=== PATIENT | female | born 1990 | race Caucasian/White ===

== ENCOUNTER 2017-03-03 08:53 | Emergency (ER) | payer BC ==
[2017-03-03] MEDS ORDERED: NORMAL SALINE 1000 ML 1,000 ML IV ONE ×2 (10:00→12:29)
--- NOTE | 2017-03-03 10:04 | ER Document Report ---
ED Flu Like - General Chief Complaint: Flu Symptoms Stated Complaint: SORE THROAT Time Seen by Provider: 03/03/17 09:38 Mode of Arrival: Ambulatory Information source: Patient TRAVEL OUTSIDE OF THE [place] IN LAST 30 DAYS: No - HPI Notes: 26-year-old previously healthy female at 22-1/2 weeks gestation presents with subjective fever, sore throat, generalized malaise and myalgias for the past 2-3 days. She has had cough minimally productive at most and considers it mild. Sore throat has been fairly significant. She has been hot and cold both with subjective fevers. Denies nausea vomiting as well as diarrhea. Denies any related symptoms, vaginal bleeding discharge abdominal pain or cramping. She was referred according to triage for a flu and strep test as well as IV fluids. Denies other exacerbating or alleviating symptoms. - Related Data Allergies/Adverse Reactions: No Known Allergies Allergy (Unverified 03/03/17 08:56) Past Medical History - Social History Smoking Status: Never Smoker Family History: Reviewed & Not Pertinent - Medical History Medical History: Negative Review of Systems - Review of Systems -: Yes All other systems reviewed and negative Physical Exam - Vital signs Vitals: Temp Pulse Resp BP Pulse Ox 98.4 F 115 H 17 102/87 H 99 03/03/17 08:56 03/03/17 08:56 03/03/17 08:56 03/03/17 08:56 03/03/17 08:56 Interpretation: Tachycardic - Notes Notes: GENERAL: VS as per nursing doc. Well-appearing, well-nourished and in no acute distress. HEAD: Atraumatic, normocephalic. EYES: Pupils equal round and reactive to light, extraocular movements intact, sclera anicteric, no conjunctival injection or discharge. ENT: Nares patent, oropharynx clear without exudates, moist mucous membranes. NECK: Normal range of motion, supple without lymphadenopathy. LUNGS: Breath sounds clear to auscultation bilaterally and equal. No wheezes rales or rhonchi. HEART: Regular rhythm without murmurs. Heart rate 106 ABDOMEN: Soft, gravid consistent with dates, non-tender, normoactive bowel sounds. No guarding, no rebound. No masses appreciated. No Matlock sign. BACK: No CVA tenderness. EXTREMITIES: Normal range of motion, no calf tenderness, no edema. NEUROLOGICAL: Cranial nerves grossly intact. Normal speech. No meningeal signs. PSYCH: Normal mood, normal affect. SKIN: Warm, dry, normal turgor, no lesions noted. Course - Re-evaluation Re-evalutation: 03/03/17 11:59 Patient rechecked and there are no changes though patient has not yet received the IV fluids. Discussed differential diagnosis with her and what appears to be a viral syndrome, as well as warning signs to watch for. She will use Tylenol for discomfort and stay hydrated. She voices understanding. - Vital Signs Vital signs: Temp Pulse Resp BP Pulse Ox 98.5 F 91 16 122/73 100 03/03/17 12:08 03/03/17 12:08 03/03/17 12:08 03/03/17 12:08 03/03/17 12:08 Discharge - Discharge Clinical Impression: Viral syndrome Condition: Good Disposition: HOME, SELF-CARE Instructions: Acetaminophen, Viral Syndrome ([facility]) Additional Instructions: Use Tylenol for discomfort. Push non-caffeinated fluids and stay hydrated. Return for worsening or concern. A throat culture to verify the initial swab will take a couple of days to get the results back.
[2017-03-03 10:21] LABS: A TYPE INFLUENZA AG NEGATIVE (NEGATIVE); B INFLUENZA AG NEGATIVE (NEGATIVE)
[2017-03-03] MEDS ORDERED: ACETAMINOPHEN 325 MG TABLET PO ONE (11:57)
[2017-03-03 12:27] VITALS: BP 122/73
== END 2017-03-03 13:06 | disposition home or self-care (01) ==
LOC: ER 08:53
DX: O98.512 Other viral diseases complicating pregnancy, second trimester (principal); O99.512 Diseases of the respiratory system complicating pregnancy, second trimester; J02.9 Acute pharyngitis, unspecified; O26.892 Other specified pregnancy related conditions, second trimester; R05 Cough; R00.0 Tachycardia, unspecified; O99.89 Other specified diseases and conditions complicating pregnancy, childbirth and the puerperium; M79.1 Myalgia; O26.812 Pregnancy related exhaustion and fatigue, second trimester; Z3A.22 22 weeks gestation of pregnancy
CPT/HCPCS: 87070; 87804; 87880; 99283

== ENCOUNTER 2017-06-25 18:57 | Inpatient (IN) | payer BC ==
[2017-06-25] MEDS ORDERED: RINGERS SOLUTION,LACTATED 1,000 ML IV PRN (19:27)
[2017-06-25] MEDS ORDERED: RINGERS SOLUTION,LACTATED 300 ML IV ONE (19:27)
[2017-06-25] MEDS ORDERED: DINOPROSTONE 10 MG VAGINAL INSERT.SR PV PRN (19:27)
[2017-06-25] MEDS ORDERED: MISOPROSTOL 0.2 MG TABLET ONE (20:04)
[2017-06-25] MEDS ORDERED: OXYTOCIN/NORMAL SALINE 20 UNIT/1,000 ML RTUINJ ONE (20:05)
[2017-06-25] MEDS ORDERED: LIDOCAINE 1% INJ-PF (10 MG/ML) 30 ML SDV ONE (20:05)
[2017-06-25] MEDS ORDERED: DINOPROSTONE 10 MG VAGINAL INSERT.SR ONE (20:05)
[2017-06-25 20:19] LABS: ABSOLUTE LYMPHOCYTES (AUTO) 1.4 10^3/uL (0.5-4.7); ABSOLUTE MONOCYTES (AUTO) 0.8 10^3/uL (0.1-1.4); ABSOLUTE NEUT (AUTO) 8.9 10^3/uL (1.7-8.2); BASOPHILS % (AUTO) 0.3 % (0-2); EOSINOPHILS % (AUTO) 0.2 % (0-6); HEMOGLOBIN 13.7 g/dL (12.0-15.5); LYMPHOCYTES % (AUTO) 12.8 % (13-45); MEAN CORPUSCULAR HEMOGLOBIN 31.1 pg (27.0-33.4); MEAN CORPUSCULAR HGB CONC 33.5 g/dL (32.0-36.0); MEAN CORPUSCULAR VOLUME 93 fl (80-97); MONOCYTES % (AUTO) 7.1 % (3-13); PLATELET COUNT 102 10^3/uL (150-450); RED BLOOD COUNT 4.42 10^6/uL (3.72-5.28); RED CELL DISTRIBUTION WIDTH 14.3 % (11.5-14.0); SEGMENTED NEUTROPHILS % (AUTO) 79.6 % (42-78); TOTAL CELLS COUNTED % (AUTO) 100 %; WHITE BLOOD COUNT 11.3 10^3/uL (4.0-10.5)
[2017-06-25 20:31] LABS: APPEARANCE,URINE CLEAR; BILIRUBIN,URINE NEGATIVE (NEGATIVE); COLOR,URINE YELLOW; GLUCOSE, URINE NEGATIVE (NEGATIVE); KETONES,URINE NEGATIVE (NEGATIVE); LEUKOCYTE ESTERASE,URINE NEGATIVE (NEGATIVE); NITRITE,URINE NEGATIVE (NEGATIVE); PROTEIN,URINE NEGATIVE (NEGATIVE); URINE SPECIFIC GRAVITY 1.008
[2017-06-25 20:39] LABS: URINE AMPHETAMINES SCREEN NEGATIVE; URINE BARBITURATES SCREEN NEGATIVE; URINE BENZODIAZEPINES SCREEN NEGATIVE; URINE COCAINE SCREEN NEGATIVE; URINE MARIJUANA (THC) SCREEN NEGATIVE; URINE METHADONE SCREEN NEGATIVE; URINE PHENCYCLIDINE SCREEN NEGATIVE
[2017-06-25 20:43] LABS: ALANINE AMINOTRANSFERASE 21 U/L (9-52); ALBUMIN 3.4 g/dL (3.5-5.0); ALKALINE PHOSPHATASE 140 U/L (38-126); ANION GAP 14 (5-19); ASPARTATE AMINO TRANSFERASE 20 U/L (14-36); BILIRUBIN,DIRECT 0.2 mg/dL (0.0-0.4); BILIRUBIN,TOTAL 0.3 mg/dL (0.2-1.3); BLOOD UREA NITROGEN 7 mg/dL (7-20); CALCIUM 9.3 mg/dL (8.4-10.2); CARBON DIOXIDE 21 mmol/L (22-30); CHLORIDE 107 mmol/L (98-107); GLUCOSE 87 mg/dL (75-110); LDH 398 U/L (313-618); POTASSIUM 4.3 mmol/L (3.6-5.0); URIC ACID 5.3 mg/dL (2.5-6.2)
[2017-06-25 20:44] LABS: UR PRO/CREAT RATIO RESULT 0.1 mg/mg (0.0-0.2); URINE CREATININE 74.4 mg/dL (16-327); URINE PROTEIN 10.3 mg/dL (<12)
--- NOTE | 2017-06-26 08:23 | Admission Physical ---
Datetime Report Generated by CPN: 06/26/2017 08:23 CURRENT ADMISSION Hx Assessment: The History has been Reviewed and is Current Chief Complaint: Scheduled Induction of Labor Indication for Induction: Gestational HTN Indication for Induction- Other: thrombocytopenia Admit Impression : Term, Intrauterine ; No Active Labor; Intact Membranes Admit Plan: Admit to Unit; Initiate Labor Induction Protocol ALLERGIES Medication Allergies: No Medication Allergies: No Known Allergies (06/25/2017) Latex: No Latex Allergies Food Allergies: none Environmental Allergies: none OBSTETRICAL HISTORY EDC: 07/01/2017 00:00 : 1 Para: 0 Term: 0 : 0 SAB: 0 IAB: 0 Ectopic: 0 Livin Cesareans: 0 VBACs: 0 Multiple Births: 0 Gestational Diabetes: No Rh Sensitization: No Incompetent Cervix: No HERNAN: No Infertility: No ART Treatment: No Uterine Anomaly: No IUGR: No Hx Previous C/S: No Macrosomia: No Hx Loss/Stillborn: No PIH: No Hx : No Placenta Previa/Abruption: No Depression/PP Depression: No PTL/PROM: No Post Hemorrhage: No Current Procedures: Ultrasound Obstetrical History Comments: G1: Current CHTN vs GHTN SEE RECORDS Alcohol: No Marijuana : No Cocaine: No Other Illicit Drugs: No Cigarettes: Never Smoker. 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 Surgery: No Heart Disease: No Hosp/Surgery: No Autoimmune Disorder: No Anesthetic Complications: No Kidney Disease: No Abnormal Pap Smear: No Neuro/Epilepsy: No Psychiatric Disorders: No Other Medical Diseases: No Hepatitis/Liver Disease: No Significant Family History: No Varicosities/Phlebitis: No Trauma/Violence : No Thyroid Dysfunction: No Medical History Comments: thrombocytopenia, GHTN, palpitations INFECTIOUS HISTORY Gonorrhea: No Genital Herpes: No Chlamydia: No Tuberculosis: No Syphilis: No Hepatitis: No HIV/AIDS Exposure: No Rash or Viral Illness: No HPV: No PHYSICAL EXAM General: Normal HEENT: Normal Neurologic: Deferred Thyroid: Normal Heart: Normal Lungs: Normal Breast: Normal Back: Normal Abdomen: Normal Genitourinary Exam: Normal Extremities: Normal DTRs: Normal Pelvic Type: Adequate Vital Signs: Reviewed VAGINAL EXAM Dilatation: 1 Contraction Comments: irregular MEMBRANES Membranes: Intact FETUS A EGA: 39.2 Monitoring: External US FHR- Baseline: 120 Variability: Moderate 6-25bpm Accelerations: 15X15 Decelerations: None Estimated Weight (gm): 3400 Presentation: Vertex Admit Comment: scheduled iol ghtn, thrombocytopenia Admit to L _ D see hx GBS neg cervidil over night PLANS FOR LABOR AND DELIVERY Labor and Delivery: None Pain Management: Epidural Feeding Preference: Formula Benefit of Breast Feed Discussed: Yes Circumcision: Yes INFORMED CONSENT Assignment: Poornima Scott MD Signature: with User ID: [email or web address] : with User ID: [email or web address]
[2017-06-26] MEDS ORDERED: NALBUPHINE HCL INJ 10 MG/1 ML AMPULE INJ ONE (10:33)
[2017-06-26] MEDS ORDERED: ONDANSETRON HCL INJ/PF 4 MG/2 ML SDV IV ONE (10:49)
[2017-06-26] MEDS ORDERED: NALBUPHINE HCL INJ 10 MG/1 ML AMPULE ONE (10:53)
[2017-06-26] MEDS ORDERED: ONDANSETRON HCL INJ/PF 4 MG/2 ML SDV ONE (10:54)
[2017-06-26 11:55] LABS: ABSOLUTE LYMPHOCYTES (AUTO) 1.2 10^3/uL (0.5-4.7); ABSOLUTE MONOCYTES (AUTO) 0.7 10^3/uL (0.1-1.4); ABSOLUTE NEUT (AUTO) 9.4 10^3/uL (1.7-8.2); BASOPHILS % (AUTO) 0.2 % (0-2); HEMATOCRIT 39.9 % (36.0-47.0); HEMOGLOBIN 13.5 g/dL (12.0-15.5); LYMPHOCYTES % (AUTO) 10.3 % (13-45); MEAN CORPUSCULAR HEMOGLOBIN 31.2 pg (27.0-33.4); MEAN CORPUSCULAR HGB CONC 33.8 g/dL (32.0-36.0); MEAN CORPUSCULAR VOLUME 92 fl (80-97); MONOCYTES % (AUTO) 6.2 % (3-13); RED BLOOD COUNT 4.32 10^6/uL (3.72-5.28); RED CELL DISTRIBUTION WIDTH 14.1 % (11.5-14.0); SEGMENTED NEUTROPHILS % (AUTO) 83.3 % (42-78); TOTAL CELLS COUNTED % (AUTO) 100 %; WHITE BLOOD COUNT 11.3 10^3/uL (4.0-10.5)
[2017-06-26 12:34] LABS: PLATELET COUNT 96 10^3/uL (150-450)
[2017-06-26] MEDS ORDERED: EPHEDRINE SULFATE INJ 50 MG/1 ML AMPULE ONE (13:00)
[2017-06-26] MEDS ORDERED: BUPIVACAINE HCL 0.25 % INJ/PF (2.5 MG/1 ML) 30 ML VIAL ONE (13:00)
[2017-06-26] MEDS ORDERED: FENTANYL/BUPIVACAINE/NS/PF 300 MCG/150 ML RTUINJ EPI ONE (13:00)
[2017-06-26] MEDS ORDERED: OXYTOCIN/NORMAL SALINE 20 UNIT/1,000 ML RTUINJ IV PRN (14:29)
[2017-06-26] MEDS ORDERED: OXYTOCIN/NORMAL SALINE 20 UNIT/1,000 ML RTUINJ ONE (14:32)
--- NOTE | 2017-06-26 18:42 | L&D Progress Notes ---
PROGRESS NOTES Datetime Report Generated by CPN: 06/26/2017 18:41 PROGRESS NOTE Impression: Normal Progression of Labor Procedures: Artificial ROM Plan: Continue Present Management; Induction; Cervical Ripening Informed Consent Obtained: Vaginal Delivery; Induction of Labor; Risks, Benefits and Alternatives Discussed Vital Signs : Reviewed Vital Signs Comments: some mild range BPs Comment: Cooks catheter removed at approx 1500 after epidural. Patient now comfortable. No pitocin started yet since patient was paul. Pitocin initated at 1500, Now AROM attempted - bag is tight on head. POssible AROM with clear fluid. Will continue with IOL and anticipate . Not laboring cervix yet. VAGINAL EXAM Dilatation: 1 Contractions: irregular MEMBRANES Membranes: Ruptured Membranes: Intact FETUS A FHR - Baseline: 120 Monitoring: External US Variability: Moderate 6-25bpm Accelerations: 15X15 Decelerations: None FHR Category: Category I Estimated Weight (gm): 3400 Presentation: Vertex SIGNATURE SIGNATURE: [id number];[id number] SIGNATURE: [id number] Signature: with User ID: [email or web address]
[2017-06-27] MEDS ORDERED: FENTANYL/BUPIVACAINE/NS/PF 300 MCG/150 ML RTUINJ EPI ONE (00:04)
[2017-06-27] MEDS ORDERED: LIDOCAINE 2% INJ-PF (20 MG/ML) 10 ML AMPUL ONE ×2 (00:16→04:36)
[2017-06-27] MEDS ORDERED: DIPHENHYDRAMINE HCL 50 MG/ML VIAL ONE (03:43)
[2017-06-27] MEDS ORDERED: CITRIC ACID/SODIUM CITRATE ORAL SOLN 15 ML UDCUP ONE (04:33)
[2017-06-27] MEDS ORDERED: MISOPROSTOL 0.2 MG TABLET ONE (04:33)
[2017-06-27] MEDS ORDERED: CEFAZOLIN 2 GM/D5W RTU 2 GM/50 ML RTUPB IV ONE ×2 (04:33→07:00)
--- NOTE | 2017-06-27 06:40 | L&D Progress Notes ---
PROGRESS NOTES Datetime Report Generated by CPN: 06/27/2017 06:40 PROGRESS NOTE Impression: Arrest of Dilatation/Descent Procedures: Sterile Vag Exam Plan: Deliver- Section Informed Consent Obtained: Vaginal Delivery; Section Delivery; Risks, Benefits and Alternatives Discussed Vital Signs : Reviewed Comment: Cvx unchanged at 4-5/60/hi despite 20 units of pitocin. station is still very high (really -3 not -2). No cervical change despite IUPC placement. Ctx q 1-2 minutes and some lasting a long time with resting uterine tone high at 60. Reviewed with patient unable to obtain adequate MVUs despite 20 units of pitocin. station and cervical exam unchanged since yesterday at 1730. Offered to continued pitocin at 20 units for an additional 2 hours and continue with attempt of vaginal delivery vs section for Arrest of Dilation. R/B/A reviewed and she desires to proceed with Primary section. FETUS A FHR - Baseline: 145 Monitoring: External US Variability: Moderate 6-25bpm Accelerations: 15X15 Decelerations: None FHR Category: Category I FETUS C SIGNATURE: [id number] Signature: with User ID: [email or web address]
[2017-06-27] MEDS ORDERED: LOPERAMIDE HCL 2 MG CAPSULE ONE (06:41)
[2017-06-27] MEDS ORDERED: CARBOPROST TROMETHAMINE INJ 250 MCG/1 ML AMPULE ONE (06:41)
[2017-06-27] MEDS ORDERED: EPHEDRINE SULFATE INJ 50 MG/1 ML AMPULE ONE (06:46)
[2017-06-27] MEDS ORDERED: MIDAZOLAM 2 MG/2 ML INJ ONE (06:46)
[2017-06-27] MEDS ORDERED: OXYTOCIN 10 UNIT/ML VIAL ONE (06:46)
[2017-06-27] MEDS ORDERED: ONDANSETRON HCL INJ/PF 4 MG/2 ML SDV ONE (06:47)
[2017-06-27] MEDS ORDERED: FENTANYL CITRATE INJ/PF 100 MCG/2 ML AMPUL ONE (06:47)
[2017-06-27] MEDS ORDERED: ACETAMINOPHEN 100 ML IV ONE (06:47)
[2017-06-27] MEDS ORDERED: MORPHINE SULFATE 10 MG/ML INJ ONE (07:25)
[2017-06-27] MEDS ORDERED: MORPHINE SULFATE 10 MG/ML INJ IV PRN (07:32)
[2017-06-27] MEDS ORDERED: MEPERIDINE HCL/PF INJ 25 MG/1 ML DISP.SYRIN IV PRN (07:32)
[2017-06-27] MEDS ORDERED: DIPHENHYDRAMINE HCL 50 MG/ML VIAL IV PRN (07:32)
[2017-06-27] MEDS ORDERED: OXYCODONE-ACETAMINOPHEN 5-325 MG TABLET PO PRN ×3 (07:32→08:15)
[2017-06-27] MEDS ORDERED: FENTANYL CITRATE INJ/PF 100 MCG/2 ML AMPUL IV PRN ×3 (07:32)
[2017-06-27] MEDS ORDERED: PROMETHAZINE HCL INJ 25 MG/1 ML VIAL IV PRN ×3 (07:32→08:15)
[2017-06-27] MEDS ORDERED: METOPROLOL TARTRATE PF/INJ 5 MG/5 ML SDV IV ONE (07:55)
[2017-06-27] MEDS ORDERED: HYDROMORPHONE HCL INJ/PF 2 MG/ML AMPULE ONE ×2 (07:55→09:22)
[2017-06-27] MEDS ORDERED: SIMETHICONE 80 MG TAB.CHEW PO PRN (08:15)
[2017-06-27] MEDS ORDERED: DIPH/PERTUSS(ACELL)/TETANUS VAC/PF 0.5 ML SYR (>=10YO) IM PRN (08:15)
[2017-06-27] MEDS ORDERED: OXYTOCIN/NORMAL SALINE 20 UNIT/1,000 ML RTUINJ IV PRN (08:15)
[2017-06-27] MEDS ORDERED: HYDROMORPHONE HCL INJ/PF 2 MG/ML AMPULE IV PRN (08:15)
[2017-06-27] MEDS ORDERED: ACETAMINOPHEN 325 MG TABLET PO PRN (08:15)
[2017-06-27] MEDS ORDERED: ACETAMINOPHEN 100 ML IV PRN (08:15)
[2017-06-27] MEDS ORDERED: MEASLES,MUMPS&RUBELLA VACC/PF 0.5 ML VIAL SUBCUT PRN (08:15)
[2017-06-27] MEDS ORDERED: OXYTOCIN/NORMAL SALINE 0 UNIT/0 ML RTUINJ ONE (08:16)
[2017-06-27] MEDS ORDERED: MISOPROSTOL 0.2 MG TABLET PR ONE (08:25)
[2017-06-27] MEDS ORDERED: DEXAMETHASONE SOD PHOSPHATE INJ 4 MG/1 ML VIAL ONE (08:26)
--- NOTE | 2017-06-27 08:55 | Brief Operative Note ---
BRIEF OPERATIVE REPORT DATE OF SURGERY: 06/27/17 TIME OF SURGERY: 07:00 PREOPERATIVE DIAGNOSIS: Arrest Of Dilation at 5cm, GHTN, Thrombocytopenia POSTOPERATIVE DIAGNOSIS: ANDREA - delivered SURGEON: SHEA BAZAN FINDINGS: VMI, delivered at 0714, cephalic presentation. Apgars 4/8. Weight 7# 7oz. Contraction band in uterus prior to head which was likely preventing cervical dilation and descent. QBL 1431ml, UOP 100ml clear, IVF 900. S/w Dr. Guzman and will give Dexamethasone 10mg IV now and then repeat platlets in [address] Hill to be notified prior to epidural catheter removal. Dr. Hill aware. COMPLICATIONS: uterine atony ESTIMATED BLOOD LOSS: QBL 1431ml TISSUE REMOVED OR ALTERED: placenta and cord not sent to pathology TECHNICAL PROCEDURE: Primary Section
[2017-06-27] MEDS ORDERED: DEXAMETHASONE SOD PHOS INJ 10 MG/1 ML VIAL IM ONE ×2 (09:30→22:00)
--- NOTE | 2017-06-27 10:39 | Delivery Summary ---
Del Sum A-C Datetime Report Generated by CPN: 06/27/2017 10:38 DELIVERY PERSONNEL DELIVERY PERSONNEL: [id number] Delivery Doctor:: Poornima Scott MD Anesthesiologist:: Jez Joel MD HELP DESK AGENT:: Lucrecia Doherty CRNA Labor and Delivery Nurse:: Gretchen Vzaquez RNcopier technician Nurse:: Abby Slater RN Sales Associate Key Holder:: Gretchen Vazquez RN Neonatal Nurse Practitioner:: NITA Anderson Private Equity Analyst/ACADEMIC INTERVENTIONIST: Eduarda Philip, HIRE CAR DRIVER Private Equity Analyst/ACADEMIC INTERVENTIONIST: Carissa Burleson HIRE CAR DRIVER MATERNAL INFORMATION Delivery Anesthesia: Epidural Medications After Delivery: Pitocin 10 Units IM; Pitocin Bolus-Please Comment; Pitocin Drip 20 Units/1000ml NSS; Other-Please Comment Meds After Delivery Comment: Cytotec 1000 mcg [place] Maternal Complications: None LABOR SUMMARY EDC: 07/01/2017 00:00 No. Babies in Womb: 1 Attempted: No Labor Anesthesia: Epidural LABOR INFORMATION Reason for Induction: Gestational Hypertension Onset of Labor: 06/26/2017 17:28 Cervical Ripening Agents: Cervidil Oxytocin: Induction Group B Beta Strep: negative Antibiotics # of Doses: n/a Antibiotics Time of Last Dose: n/a Name of Antibiotic Given: n/a Steroids Given: None Reason Steroids Not Administered: Not Applicable MEMBRANES Membranes Rupture Method: Spontaneous Rupture of Membranes: 06/26/2017 17:30 Length of Rupture (hr): 13.73 Amniotic Fluid Color: Bloody Amniotic Fluid Amount: Scant Amniotic Fluid Odor: Normal STAGES OF LABOR Stage 3 hr: 0 Stage 3 min: 1 Total Time in Labor hr: 13 Total Time in Labor min: 47 VAGINAL DELIVERY Episiotomy: None Laceration #1: None Laceration Extension #1: N/A Laceration Repair: Not Applicable Sponge Count Correct: N/A Sharps Count Correct: N/A CSECTION DELIVERY Primary Indication: Failed Induction Secondary Indication: N/A CSection Urgency: Non-Scheduled CSection Incidence: Primary Labor: Labor Elective: Nonelective CSection Incision: Lower Uterine Transverse BABY A INFORMATION Infant Delivery Date/Time: 06/27/2017 07:14 Method of Delivery: Born in Route : No : N/A Forceps: N/A Vacuum Extraction: N/A Shoulder Dystocia : No PRESENTATION/POSITION BABY A Presentation: Cephalic Cephalic Presentation: Vertex Breech Presentation: N/A PLACENTA INFORMATION BABY A Placenta Delivery Time : 06/27/2017 07:15 Placenta Method of Delivery: Manual Removal Placenta Status: Delivered SCORES BABY A Heart Rate 1 min: >100 bpm Resp Effort 1 min: Absent Reflex Irritability 1 min: Grimace Muscle Tone 1 min: Some Flexion of Extremities Color 1 min: Blue/Pale Resuscitation Effort 1 min: Tactile Stimulation; PPV/NCPAP SCORE 1 MIN: 4 Heart Rate 5 min: >100 bpm Resp Effort 5 min: Good Cry Reflex Irritability 5 min: Cough or Sneeze or Pulls Away Muscle Tone 5 min: Some Flexion of Extremities Color 5 min: Body [place], Extremities Blue SCORE 5 MIN: 8 INFORMATION BABY A Gestational Age at Delivery: 39.3 Gestational Status: Full Term- 39- 40.6 Weeks Outcome : Liveborn Infant Condition : Stable Sex: Male IDENTIFICATION BABY A Infant Verification Date/Time: 06/27/2017 07:29 ID Band Number: [id number] Mother's Name Verified: Yes RN Verifying : Kathryn Camp RNC Additional Verifying Personnel: R David RN WEIGHT/LENGTH BABY A Infant Birthweight (gm): 3360 Weight (lb): 7 Infant Weight (oz): 7 Infant Length (in): 20.00 Infant Length (cm): 50.80 CORD INFORMATION BABY A No. Cord Vessels: 3 Nuchal Cord : Around Neck x1, Loose Cord Blood Taken: Yes-For Eval (Mom's Blood Type - or O+) Infant Suction: Mouth ASSESSMENT BABY A Skin to Skin: No BABY B INFORMATION : N/A
[2017-06-27 12:00] LABS: HEMATOCRIT 33.4 % (36.0-47.0); MEAN CORPUSCULAR HEMOGLOBIN 31.3 pg (27.0-33.4); MEAN CORPUSCULAR HGB CONC 33.5 g/dL (32.0-36.0); MEAN CORPUSCULAR VOLUME 93 fl (80-97); RED BLOOD COUNT 3.58 10^6/uL (3.72-5.28); RED CELL DISTRIBUTION WIDTH 13.9 % (11.5-14.0)
[2017-06-27] MEDS ORDERED: CEFAZOLIN 2 GM/D5W RTU 2 GM/50 ML RTUPB IV SCH (12:00)
[2017-06-27 12:08] LABS: HEMOGLOBIN 11.2 g/dL (12.0-15.5); PLATELET COUNT 82 10^3/uL (150-450)
[2017-06-27 12:21] LABS: ABSOLUTE LYMPHOCYTES# (MANUAL) 0.7 10^3/uL (0.5-4.7); ABSOLUTE MONOCYTES # (MANUAL) 0.3 10^3/uL (0.1-1.4); BASOPHILS % (MANUAL) 0 % (0-2); EOSINOPHILS % (MANUAL) 0 % (0-6); LYMPHOCYTES % (MANUAL) 4 % (13-45); MONOCYTES % (MANUAL) 2 % (3-13); SEGMENTED NEUTROPHILS % (MAN) 94 % (42-78); TOTAL CELLS COUNTED 100
[2017-06-27 12:24] LABS: PLATELET COMMENT DECREASED; RBC MORPHOLOGY COMMENT NORMO-CYTIC/CHROMIC
[2017-06-27] MEDS: OXYCODONE-ACETAMINOPHEN 5-325 MG TABLET PO PRN ×3 (13:37→22:12)
[2017-06-27] MEDS: DOCUSATE SODIUM 100 MG CAPSULE PO SCH ×2 (13:38→17:41)
[2017-06-27] MEDS: PRENATAL VITAMIN W DHA CAPSULE PO SCH (13:38)
[2017-06-27] MEDS ORDERED: DEXAMETHASONE SOD PHOS INJ 10 MG/1 ML VIAL IV ONE (18:50)
[2017-06-27 20:13] LABS: ABSOLUTE BASOPHILS # (AUTO) 0.1 10^3/uL (0.0-0.2); ABSOLUTE LYMPHOCYTES (AUTO) 1.1 10^3/uL (0.5-4.7); ABSOLUTE MONOCYTES (AUTO) 0.8 10^3/uL (0.1-1.4); ABSOLUTE NEUT (AUTO) 17.8 10^3/uL (1.7-8.2); BASOPHILS % (AUTO) 0.6 % (0-2); HEMATOCRIT 30.3 % (36.0-47.0); HEMOGLOBIN 10.3 g/dL (12.0-15.5); LYMPHOCYTES % (AUTO) 5.5 % (13-45); MEAN CORPUSCULAR HEMOGLOBIN 31.6 pg (27.0-33.4); MEAN CORPUSCULAR HGB CONC 34.1 g/dL (32.0-36.0); MEAN CORPUSCULAR VOLUME 93 fl (80-97); RED BLOOD COUNT 3.26 10^6/uL (3.72-5.28); RED CELL DISTRIBUTION WIDTH 14.1 % (11.5-14.0); SEGMENTED NEUTROPHILS % (AUTO) 89.9 % (42-78); TOTAL CELLS COUNTED % (AUTO) 100 %; WHITE BLOOD COUNT 19.8 10^3/uL (4.0-10.5)
[2017-06-27 20:28] LABS: PLATELET COUNT 77 10^3/uL (150-450)
[2017-06-28] MEDS: OXYCODONE-ACETAMINOPHEN 5-325 MG TABLET PO PRN ×5 (02:28→22:39)
[2017-06-28 07:30] LABS: HEMATOCRIT 34.3 % (36.0-47.0); HEMOGLOBIN 11.6 g/dL (12.0-15.5); MEAN CORPUSCULAR HEMOGLOBIN 31.5 pg (27.0-33.4); MEAN CORPUSCULAR HGB CONC 33.8 g/dL (32.0-36.0); MEAN CORPUSCULAR VOLUME 93 fl (80-97); PLATELET COUNT 107 10^3/uL (150-450); RED BLOOD COUNT 3.68 10^6/uL (3.72-5.28); RED CELL DISTRIBUTION WIDTH 14.3 % (11.5-14.0); WHITE BLOOD COUNT 22.9 10^3/uL (4.0-10.5)
--- NOTE | 2017-06-28 09:14 | PDOC PROGRESS REPORT ---
Subjective-OB Progress Note for:: 06/28/17 Subjective: s/p primary c section pt sitting up reports dull pain abdomen soft and mildly tender/ dry and intact -flatus -bm epidural catheter in place/ steroids given last night/platelets up to 107,000/ hemooncologist to see pt today bottlefeeding anticipate d/c in Am Physical Exam (OB) Vital Signs: Temp Pulse Resp BP Pulse Ox 98.8 F 93 18 152/88 H 98 06/28/17 07:16 06/28/17 07:16 06/28/17 07:16 06/28/17 07:16 06/28/17 07:16 Intake & Output 06/27/17 06/28/17 06/29/17 06:59 06:59 06:59 Output Total 4400 Balance -4400 - PIH/Pre-Eclampsia Clonus: Negative Headache: Absent Epigastric Pain: No Visual Changes: No - Incision: Well Approximated Closure Type: Sutures - Lochia Lochia Amount: Scant < 10 ml Lochia Color: Rubra/Red - Abdomen Description: Soft, Flat Hernia Present: No Fundal Description: Firm, Midline Fundal Height: u/u - u/2 Objective-Diagnostic Laboratory: 06/28/17 06:36 06/25/17 19:53 06/27/17 06/27/17 06/28/17 11:34 20:00 06:36 WBC 17.0 H 19.8 H 22.9 H RBC 3.58 L 3.26 L 3.68 L Hgb 11.2 L D 10.3 L 11.6 L Hct 33.4 L 30.3 L 34.3 L MCV 93 93 93 MCH 31.3 31.6 31.5 MCHC 33.5 34.1 33.8 RDW 13.9 14.1 H 14.3 H Plt Count 82 L 77 L 107 L Seg Neutrophils % Not Reportable 89.9 H Lymphocytes % Not Reportable 5.5 L Monocytes % Not Reportable 4.0 Eosinophils % Not Reportable 0.0 Basophils % Not Reportable 0.6 Absolute Neutrophils Not Reportable 17.8 H Absolute Lymphocytes Not Reportable 1.1 Absolute Monocytes Not Reportable 0.8 Absolute Eosinophils Not Reportable 0.0 Absolute Basophils Not Reportable 0.1 Blood Type 06/28/17 06:36 WBC RBC Hgb Hct MCV MCH MCHC RDW Plt Count Seg Neutrophils % Lymphocytes % Monocytes % Eosinophils % Basophils % Absolute Neutrophils Absolute Lymphocytes Absolute Monocytes Absolute Eosinophils Absolute Basophils Blood Type O NEGATIVE
[2017-06-28] MEDS: PRENATAL VITAMIN W DHA CAPSULE PO SCH (10:41)
[2017-06-28] MEDS: DOCUSATE SODIUM 100 MG CAPSULE PO SCH ×2 (10:41→18:14)
--- NOTE | 2017-06-28 12:14 | PDOC CONSULTATION ---
Consultation Consult Date: 06/28/17 Attending physician:: SHEA BAZAN Consult reason:: Thrombocytopenia History of Present Illness Admission Date/PCP: 06/25/17 18:57 Patient complains of: Low platelets History of Present Illness: SONIA PATRICIA is a 27 year old female well-known to our hematology clinic with known history of thrombocytopenia associated with , thus far we have felt that this is secondary to ITP most likely, prior to her platelet count seem to be stable at slightly over 100,000, however she had the epidural catheter placed and was going to be taken out yesterday but the platelet count dipped down to 82, she spoke with Dr. Gould who recommended 1 dose of IV steroids , she received that dose in the evening platelet count was still 80,000, I discussed her case with anesthesiology, and recommended that they go ahead and pull the catheter out even with a low platelet count, however they were uncomfortable with that procedure so they waited until this morning, this morning the platelet count was 107, so the catheter was removed. 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 Past Surgical History Past Surgical History: Reports: Other - Social History Information Source: Patient Lives with: Spouse/Significant other Smoking Status: Never Smoker Hx Recreational Drug Use: No Drugs: None Hx Prescription Drug Abuse: No - Advance Directive Resuscitation Status: Full Code Family History Family History: Reviewed & Not Pertinent Parental Family History Reviewed: Yes Children Family History Reviewed: Yes Sibling(s) Family History Reviewed.: Yes Medication/Allergy Home Medications: Nifedipine [Procardia XL 30 mg Tablet] 1 tab PO DAILY 06/25/17 Pnv 102/Iron/Folate 1/Dss/Dha [Vitafol Fe+ Docusate Combo Pck] 1 cap PO DAILY Allergies/Adverse Reactions: No Known Allergies Allergy (Verified 06/25/17 19:06) Review of Systems Constitutional: ABSENT: chills, fever(s), headache(s), weight gain, weight loss Eyes: ABSENT: visual disturbances Ears: ABSENT: hearing changes Cardiovascular: ABSENT: chest pain, dyspnea on exertion, edema, orthropnea, palpitations Respiratory: ABSENT: cough, hemoptysis Gastrointestinal: ABSENT: abdominal pain, constipation, diarrhea, hematemesis, hematochezia, nausea, vomiting Genitourinary: ABSENT: dysuria, hematuria Musculoskeletal: ABSENT: joint swelling Integumentary: ABSENT: rash, wounds Neurological: ABSENT: abnormal gait, abnormal speech, confusion, dizziness, focal weakness, syncope Psychiatric: ABSENT: anxiety, depression, homidical ideation, suicidal ideation Endocrine: ABSENT: cold intolerance, heat intolerance, polydipsia, polyuria Hematologic/Lymphatic: ABSENT: easy bleeding, easy bruising Physical Exam Vital Signs: Temp Pulse Resp BP Pulse Ox 98.8 F 93 18 152/88 H 98 06/28/17 07:16 06/28/17 07:16 06/28/17 07:16 06/28/17 07:16 06/28/17 07:16 Intake & Output 06/27/17 06/28/17 06/29/17 06:59 06:59 06:59 Output Total 4400 Balance -4400 General appearance: PRESENT: no acute distress, well-developed, well-nourished Head exam: PRESENT: atraumatic, normocephalic Eye exam: PRESENT: conjunctiva pink, EOMI, PERRLA. ABSENT: scleral icterus Ear exam: PRESENT: normal external ear exam Mouth exam: PRESENT: moist, tongue midline Neck exam: ABSENT: carotid bruit, JVD, lymphadenopathy, thyromegaly Respiratory exam: PRESENT: clear to auscultation yonis. ABSENT: rales, rhonchi, wheezes Cardiovascular exam: PRESENT: RRR. ABSENT: diastolic murmur, rubs, systolic murmur Pulses: PRESENT: normal dorsalis pedis pul Vascular exam: PRESENT: normal capillary refill GI/Abdominal exam: PRESENT: normal bowel sounds, soft. ABSENT: distended, guarding, mass, organolmegaly, rebound, tenderness Rectal exam: PRESENT: deferred Extremities exam: PRESENT: full ROM. ABSENT: calf tenderness, clubbing, pedal edema Neurological exam: PRESENT: alert, awake, oriented to person, oriented to place , oriented to time, oriented to situation, CN II-XII grossly intact. ABSENT: motor sensory deficit Psychiatric exam: PRESENT: appropriate affect, normal mood. ABSENT: homicidal ideation, suicidal ideation Skin exam: PRESENT: dry, intact, warm. ABSENT: cyanosis, rash Results Laboratory Results: 06/28/17 06:36 06/25/17 19:53 06/27/17 06/27/17 06/28/17 11:34 20:00 06:36 WBC 17.0 H 19.8 H 22.9 H RBC 3.58 L 3.26 L 3.68 L Hgb 11.2 L D 10.3 L 11.6 L Hct 33.4 L 30.3 L 34.3 L MCV 93 93 93 MCH 31.3 31.6 31.5 MCHC 33.5 34.1 33.8 RDW 13.9 14.1 H 14.3 H Plt Count 82 L 77 L 107 L Seg Neutrophils % 89.9 H Lymphocytes % 5.5 L Monocytes % 4.0 Eosinophils % 0.0 Basophils % 0.6 Absolute Neutrophils 17.8 H Absolute Lymphocytes 1.1 Absolute Monocytes 0.8 Absolute Eosinophils 0.0 Absolute Basophils 0.1 Blood Type 06/28/17 06:36 WBC RBC Hgb Hct MCV MCH MCHC RDW Plt Count Seg Neutrophils % Lymphocytes % Monocytes % Eosinophils % Basophils % Absolute Neutrophils Absolute Lymphocytes Absolute Monocytes Absolute Eosinophils Absolute Basophils Blood Type O NEGATIVE Assessment & Plan - Diagnosis (1) Thrombocytopenia Is this a current diagnosis for this admission?: Yes Plan: Likely secondary to ITP, platelet count should improve, prior to her platelet count was more in the 130 range, we will need to follow her up 3-4 weeks after discharge and see what her counts do, if her counts recover to greater than 140, this may be thrombocytopenia of rather than ITP. Today had a long discussion about what ITP is and what to expect with the course of that disease if that is the case. - Time Time Spent: 50 to 70 Minutes
[2017-06-29] MEDS: OXYCODONE-ACETAMINOPHEN 5-325 MG TABLET PO PRN (02:46)
--- NOTE | 2017-06-29 08:59 | PDOC DISCHARGE SUMMARY ---
Final Diagnosis Discharge Date: 06/29/17 - Final Diagnosis (1) Gestational hypertension Is this a current diagnosis for this admission?: Yes (2) Status post primary low transverse section Is this a current diagnosis for this admission?: Yes Discharge Data - Discharge Medication Prescriptions: Oxycodone HCl/Acetaminophen [Percocet 5-325 mg Tablet] 1 tab PO Q4HP PRN #30 tablet PRN Reason: Home Medications: Nifedipine [Procardia XL 30 mg Tablet] 1 tab PO DAILY 06/25/17 Pnv 102/Iron/Folate 1/Dss/Dha [Vitafol Fe+ Docusate Combo Pck] 1 cap PO DAILY Oxycodone HCl/Acetaminophen [Percocet 5-325 mg Tablet] 1 tab PO Q4HP PRN #30 tablet 06/29/17 Reason(s) for Admission: Induction of Labor Procedures: NST, Ultrasound Intrapartum Procedure(s): : Low Cervical, Transverse - Diagnosis Test Laboratory: Temp Pulse Resp BP Pulse Ox 98.1 F 78 16 139/85 H 99 06/29/17 07:49 06/29/17 07:49 06/29/17 07:49 06/29/17 07:49 06/29/17 07:49 06/25/17 06/25/17 06/26/17 19:53 19:53 11:29 RBC 4.42 4.32 Hgb 13.7 13.5 Hct 41.0 39.9 Urine Opiates Screen NEGATIVE 06/27/17 06/27/17 06/28/17 11:34 20:00 06:36 RBC 3.58 L 3.26 L 3.68 L Hgb 11.2 L D 10.3 L 11.6 L Hct 33.4 L 30.3 L 34.3 L Urine Opiates Screen - Discharge information/Instructions Discharge Activity: Activity As Tolerated Discharge Diet: Regular Disposition: HOME, SELF-CARE Follow up with: [facility] in: 1
[2017-06-29 10:02] VITALS: BP 143/82
[2017-06-29] MEDS: DOCUSATE SODIUM 100 MG CAPSULE PO SCH (10:34)
[2017-06-29] MEDS: PRENATAL VITAMIN W DHA CAPSULE PO SCH (10:34)
== END 2017-06-29 11:08 | disposition home or self-care (01) | DRG 765 ==
LOC: LR 18:57 → 2S 06-27 10:30
PROVIDERS: ADMIT Obstetrics & Gynecology Gynecology; ATTEND Obstetrics & Gynecology Gynecology
PROC: 10H07YZ Insertion of Other Device into Products of Conception, Via Natural or Artificial Opening (ICD-10-PCS; 2017-06-25)
PROC: 4A1H7CZ Monitoring of Products of Conception, Cardiac Rate, Via Natural or Artificial Opening (ICD-10-PCS; 2017-06-25)
PROC: 3E033VJ Introduction of Other Hormone into Peripheral Vein, Percutaneous Approach (ICD-10-PCS; 2017-06-25)
PROC: 0U7C7ZZ Dilation of Cervix, Via Natural or Artificial Opening (ICD-10-PCS; 2017-06-25)
PROC: 10D00Z1 Extraction of Products of Conception, Low, Open Approach (ICD-10-PCS; principal; 2017-06-27)
PROC: 3E0234Z Introduction of Serum, Toxoid and Vaccine into Muscle, Percutaneous Approach (ICD-10-PCS; 2017-06-28)
DX: O62.0 Primary inadequate contractions (principal); O99.12 Other diseases of the blood and blood-forming organs and certain disorders involving the immune mechanism complicating childbirth; O61.0 Failed medical induction of labor; D69.59 Other secondary thrombocytopenia; O13.4 Gestational [pregnancy-induced] hypertension without significant proteinuria, complicating childbirth; O69.1XX0 Labor and delivery complicated by cord around neck, with compression, not applicable or unspecified; Z3A.39 39 weeks gestation of pregnancy; Z37.0 Single live birth; Z67.91 Unspecified blood type, Rh negative
CPT/HCPCS: 1961; 36415; 80053; 80307; 81001; 82570; 83615; 84156; 84550; 85025; 85027; 85461; 86592; 86850; 86870; 86900; 86901; 94760; 94799; C1726; J0131; J0690; J1100; J1170; J1200; J2250; J2270; J2300; J2405; J2590; J2790; J3010; J3490; J7120